=== PATIENT | female | born 1940 | race Caucasian/White ===

== ENCOUNTER 2018-10-22 17:05 | Emergency (ER) | payer MEDICARE, OTHER ==
[2018-10-22] MEDS ORDERED: Aspirin 81 MG Tab.Chew PO ONE (19:01)
[2018-10-22] MEDS ORDERED: Heparin Sodium 5,000 Units/ML Vial IVPUSH ONE (19:22)
[2018-10-22] MEDS ORDERED: Heparin Sodium/D5W 25,000 UNITS/500 ML BAG IV SCH (19:30)
[2018-10-22] MEDS ORDERED: Metoprolol Tartrate 5 MG/5 ML SDV IVPUSH ONE (20:12)
--- NOTE | 2018-10-22 20:35 | EDM.PDOC ---
ED HPI GENERAL MEDICAL PROBLEM - General Chief Complaint: Cardiovascular Problem Stated Complaint: [facility] Time Seen by Provider: 10/22/18 17:45 Source of Information: Reports: Patient History Limitations: Reports: No Limitations - History of Present Illness INITIAL COMMENTS - FREE TEXT/NARRATIVE: 78-year-old female presents via [place] [facility] for evaluation and treatment chest palpitations. 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 Reported associated symptoms of lightheadedness with this. 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 She then felt very weak so she went to the [employer] and laid down on the ground. Ultimately she ended up calling EMS. She denies any chest pain, shortness of breath, lightheadedness, syncope, nausea or vomiting. At this time she is not having any chest palpitations. She' s never had anything like this before. She reports past medical history of high cholesterol and hypertension but does not have any history of any arrhythmias or previous MIs. She is a previous smoker, smoked maybe 50 years ago. She exercises daily. Primary care providers Dr. Pina at [place]. Onset: Today - Related Data Allergies Allergy/AdvReac Type Severity Reaction Status Date / Time No Known Allergies Allergy Verified 10/22/18 17:14 Home Meds: Home Meds . [Unable to Verify Home Med List] 10/22/18 [History] Past Medical History HEENT History: Reports: Impaired Vision Other HEENT History: Wears glasses Cardiovascular History: Reports: High Cholesterol, Hypertension [employer] History: Reports: - Past Surgical History HEENT Surgical History: Reports: Tonsillectomy Social & Family History - Tobacco Use Smoking Status *Q: Former Smoker Used Tobacco, but Quit: Yes Month/Year Tobacco Last Used: 1959 - Recreational Drug Use Recreational Drug Use: No ED ROS GENERAL - Review of Systems Review Of Systems: See Below Constitutional: Denies: Fever, Chills Respiratory: Denies: Shortness of Breath, Cough Cardiovascular: Reports: Palpitations (earlier, now resolved). Denies: Chest Pain GI/Abdominal: Denies: Abdominal Pain, Nausea, Vomiting ED EXAM, GENERAL - Physical Exam Exam: See Below Exam Limited By: No Limitations General Appearance: Alert, WD/WN, No Apparent Distress, Thin Throat/Mouth: Normal Inspection, Normal Voice, No Airway Compromise Respiratory/Chest: No Respiratory Distress, Lungs Clear, Normal Breath Sounds Cardiovascular: Normal Peripheral Pulses, Regular Rate, Rhythm, No Murmur GI/Abdominal: Soft, Non-Tender Neurological: Alert, Oriented, Normal Cognition Psychiatric: Normal Affect, Normal Mood Skin Exam: Warm, Dry, Normal Color EKG INTERPRETATION EKG Date: 10/22/18 Rhythm: NSR EKG Interpretation Comments: EKG #1 done at 1730 shows a normal sinus rhythm 84 bpm. T-wave inversion in V3. Reviewed by myself and Dr. Boucher. EKG #2 done at 1939 shows normal sinus rhythm at 66. Probable intermittent ectopic non-conducting atrial waves. No atrial enlargement. No AVB. No ischemic changes. Late transition. Positive left axis deviation. Second-degree left anterior fascicular block. No left ventricular hypertrophy or right ventricular perihilar hypertrophy. No interventricular conduction delay. QTC within normal limits QTC of 427. Course - Vital Signs Last Recorded V/S: Last Vital Signs Temp 98.5 F 10/22/18 17:14 Pulse 69 10/22/18 20:24 Resp 20 10/22/18 17:14 BP 147/58 H 10/22/18 20:24 Pulse Ox 98 10/22/18 17:14 Orthostatic Blood Pressure [ 140/79 Standing] Orthostatic Blood Pressure [ 156/85 Sitting] Orthostatic Blood Pressure [ 140/87 Supine] - Orders/Labs/Meds Orders: Active Orders 24 hr Category Date Time Status Cardiac Monitoring [RC] . DIRECTED Care 10/22/18 17:59 Active EKG 12 Lead [EKG Documentation Completion] [RC] STAT Care 10/22/18 19:23 Active EKG Documentation Completion [RC] STAT Care 10/22/18 17:29 Active Orthostatic Vital Signs [RC] ASDIRECTED Care 10/22/18 18:05 Active Chest 2V [CR] Stat Exams 10/22/18 17:59 Taken Labs: Laboratory Tests 10/22/18 10/22/18 10/22/18 Range/Units 18:10 18:10 18:16 WBC 6.39 (3.98-10.04) K/mm3 RBC 4.28 (3.98-5.22) M/mm3 Hgb 13.2 (11.2-15.7) gm/L Hct 39.5 (34.1-44.9) % MCV 92.3 (79.4-94.8) fl MCH 30.8 (25.6-32.2) pg MCHC 33.4 (32.2-35.5) g/dl RDW Std Deviation 44.1 (36.4-46.3) fL Plt Count 313 (182-369) K/mm3 MPV 8.9 L (9.4-12.3) fl Neut % (Auto) 66.7 (34.0-71.1) % Lymph % (Auto) 18.9 L (19.3-51.7) % [place] % (Auto) 13.1 H (4.7-12.5) % Eos % (Auto) 0.5 L (0.7-5.8) Baso % (Auto) 0.8 (0.1-1.2) % Neut # (Auto) 4.26 (1.56-6.13) K/mm3 Lymph # (Auto) 1.21 (1.18-3.74) K/mm3 [place] # (Auto) 0.84 H (0.24-0.36) K/mm3 Eos # (Auto) 0.03 L (0.04-0.36) K/mm3 Baso # (Auto) 0.05 (0.01-0.08) K/mm3 PT 10.7 (9.5-12.1) SECONDS INR 0.98 APTT 26 (24-31) SECONDS D-Dimer, Quantitative (0.19-0.50) mg/L Sodium 142 (136-145) mEq/L Potassium 3.5 (3.5-5.1) mEq/L Chloride 104 (98-107) mEq/L Carbon Dioxide 28 (21-32) mEq/L Anion Gap 13.5 (5-15) BUN 22 H (7-18) mg/dL Creatinine 1.0 (0.55-1.02) mg/dL Est Cr Clr Drug Dosing 39.59 mL/min Estimated GFR (MDRD) 54 (>60) mL/min BUN/Creatinine Ratio 22.0 H (14-18) Glucose 135 H (83-115) mg/dL Calcium 9.3 (8.5-10.1) mg/dL Magnesium 1.9 (1.8-2.4) mg/dl Total Bilirubin 0.5 (0.2-1.0) mg/dL AST 13 L (15-37) U/L ALT 17 (14-59) U/L Alkaline Phosphatase 65 (46-116) U/L Troponin I 0.145 H* (0.00-0.056) ng/mL Total Protein 7.6 (6.4-8.2) g/dl Albumin 3.7 (3.4-5.0) g/dl Globulin 3.9 gm/dL Albumin/Globulin Ratio 1.0 (1-2) TSH 3rd Generation 1.836 (0.358-3.74) uIU/mL 10/22/18 Range/Units 18:16 WBC (3.98-10.04) K/mm3 RBC (3.98-5.22) M/mm3 Hgb (11.2-15.7) gm/L Hct (34.1-44.9) % MCV (79.4-94.8) fl MCH (25.6-32.2) pg MCHC (32.2-35.5) g/dl RDW Std Deviation (36.4-46.3) fL Plt Count (182-369) K/mm3 MPV (9.4-12.3) fl Neut % (Auto) (34.0-71.1) % Lymph % (Auto) (19.3-51.7) % [place] % (Auto) (4.7-12.5) % Eos % (Auto) (0.7-5.8) Baso % (Auto) (0.1-1.2) % Neut # (Auto) (1.56-6.13) K/mm3 Lymph # (Auto) (1.18-3.74) K/mm3 [place] # (Auto) (0.24-0.36) K/mm3 Eos # (Auto) (0.04-0.36) K/mm3 Baso # (Auto) (0.01-0.08) K/mm3 PT (9.5-12.1) SECONDS INR APTT (24-31) SECONDS D-Dimer, Quantitative 0.49 (0.19-0.50) mg/L Sodium (136-145) mEq/L Potassium (3.5-5.1) mEq/L Chloride (98-107) mEq/L Carbon Dioxide (21-32) mEq/L Anion Gap (5-15) BUN (7-18) mg/dL Creatinine (0.55-1.02) mg/dL Est Cr Clr Drug Dosing mL/min Estimated GFR (MDRD) (>60) mL/min BUN/Creatinine Ratio (14-18) Glucose (83-115) mg/dL Calcium (8.5-10.1) mg/dL Magnesium (1.8-2.4) mg/dl Total Bilirubin (0.2-1.0) mg/dL AST (15-37) U/L ALT (14-59) U/L Alkaline Phosphatase (46-116) U/L Troponin I (0.00-0.056) ng/mL Total Protein (6.4-8.2) g/dl Albumin (3.4-5.0) g/dl Globulin gm/dL Albumin/Globulin Ratio (1-2) TSH 3rd Generation (0.358-3.74) uIU/mL Meds: Medications Discontinued Medications Generic Name Dose Route Start Last Admin Trade Name Freq PRN Reason Stop Dose Admin Aspirin 324 mg 10/22/18 19:01 10/22/18 19:09 Aspirin PO 10/22/18 19:02 324 mg ONETIME ONE Administration Heparin Sodium (Porcine) 3,600 units 10/22/18 19:22 10/22/18 19:32 Heparin Sodium IVPUSH 10/22/18 19:23 3,600 units .BOLUS ONE Administration Heparin Sodium/Dextrose 25,000 units in 500 mls @ 14.4 mls/hr 10/22/18 19:30 10/22/18 19:34 Heparin 25,000 Units In D5w 500 Ml IV 720 units/hr TITRATE PRISCILLA 14.4 mls/hr Administration Protocol 720 UNITS/HR Metoprolol Tartrate 5 mg 10/22/18 20:12 10/22/18 20:24 Lopressor IVPUSH 10/22/18 20:13 5 mg ONETIME ONE Administration - Radiology Interpretation Free Text/Narrative:: Chest x-ray shows no acute intrathoracic process formal radiology report pending - Re-Assessments/Exams Free Text/Narrative Re-Assessment/Exam: 10/22/18 20:22 Reviewed the labs and imaging with the patient. We will send her to [facility] in [place] as her primary care provider is at [facility]. Spoke with Dr. Gottlieb, hospitalist on-call. Agrees to accept patient. She'll go by ground EMS. She has had a heparin bolus and has a drip running. She has received a 325 mg aspirin. I did just order her 5 of Lopressor. Patient continues to deny any chest pain or shortness of breath. Departure - Departure Time of Disposition: 20:30 Disposition: DC/Tfer to Acute Hospital 02 Reason for Transfer *Q: Other Condition: Fair Clinical Impression: NSTEMI (non-ST elevated myocardial infarction) Referrals: Umberto Pina MD [Primary Care Provider] - Forms: ED Department Discharge Additional Instructions: Patient transferred by ground ambulance to [facility]. Dr. Gottlieb accepting. - My Orders Last 24 Hours: My Active Orders 10/22/18 17:29 EKG Documentation Completion [RC] STAT 10/22/18 17:59 Cardiac Monitoring [RC] . DIRECTED Chest 2V [CR] Stat 10/22/18 18:05 Orthostatic Vital Signs [RC] ASDIRECTED 10/22/18 19:23 EKG 12 Lead [EKG Documentation Completion] [RC] STAT - Assessment/Plan Last 24 Hours: My Active Orders 10/22/18 17:29 EKG Documentation Completion [RC] STAT 10/22/18 17:59 Cardiac Monitoring [RC] . DIRECTED Chest 2V [CR] Stat 10/22/18 18:05 Orthostatic Vital Signs [RC] ASDIRECTED 10/22/18 19:23 EKG 12 Lead [EKG Documentation Completion] [RC] STAT
--- NOTE | 2018-10-23 09:11 | CR ---
Chest: Two views of the chest were obtained. Comparison: No previous chest x-ray. Heart is mildly enlarged. Upper mediastinum is within normal limits. Lungs are clear but slightly hyperinflated. Diffuse degenerative endplate spurring is noted within the thoracic spine. Minimal scoliosis is also noted within the spine. Impression: 1. Mild cardiomegaly and probable emphysematous change. 2. Other incidental findings. Nothing acute is appreciated. Diagnostic code #2
== END 2018-10-22 21:11 ==
LOC: SUPCPDRO 17:05 → JD.ED 17:05
DX: I21.4 Non-ST elevation (NSTEMI) myocardial infarction (principal); I10 Essential (primary) hypertension; Z87.891 Personal history of nicotine dependence
CPT/HCPCS: 36415; 71046; 80053; 83735; 84443; 84484; 85025; 85379; 85610; 85730; 93005; 96365; 96366; 96375; 96376; 99285; A9270; J1644; J3490; 93010; 99284

== ENCOUNTER 2019-05-08 15:02 | Emergency (ER) | payer MEDICARE, OTHER ==
--- NOTE | 2019-05-08 16:04 | EDM.PDOC ---
ED HPI GENERAL MEDICAL PROBLEM - General Chief Complaint: Back Pain or Injury Stated Complaint: LOWER BACK PAIN Time Seen by Provider: 05/08/19 15:43 Source of Information: Reports: Patient, Family, RN Notes Reviewed History Limitations: Reports: No Limitations - History of Present Illness INITIAL COMMENTS - FREE TEXT/NARRATIVE: Patient is a 79-year-old female who presents to the ED for the evaluation of lower back pain. Patient notes that she has been having increased back pain that is in her bilateral lower back for last week or so. Family is present in the room, and they state that she was seen by her primary care provider, Dr. Pina last week for evaluation was given some sort of medication and they were unsure if she had any sort of x-rays done at that time. Patient does suffer from either some Alzheimer's or dementia, but she has not been formally diagnosed. She is unsure if she fell or had any trauma to the area. She denies any pain that radiates into the legs. She further states it does not hurt to pee, she is not going more frequent or less frequent. She notes that the pain is at a 10 out of 10, and movement really aggravates the pain and makes it much much worse. She states when she is resting, the pain is minimal. She took 500 mg Tylenol last night for pain relief. She states that she gets spasms as well. Bilateral Back Pain Score (Numeric/FACES): 10 - Related Data Allergies Allergy/AdvReac Type Severity Reaction Status Date / Time No Known Allergies Allergy Verified 05/08/19 15:18 Home Meds: Home Meds Bisoprolol Fumarate/HCTZ [Ziac 10-6.25 MG] 1 tab PO DAILY 05/08/19 [History] Clopidogrel [Plavix] 75 mg PO DAILY 05/08/19 [History] Donepezil HCl 10 mg PO BEDTIME 05/08/19 [History] Etodolac [Etodolac ER] 500 mg PO DAILY PRN 05/08/19 [History] Losartan [Cozaar] 100 mg PO DAILY 05/08/19 [History] Orphenadrine [Norflex] 100 mg PO BID PRN #20 tab 05/08/19 [Rx] Rosuvastatin [Crestor] 5 mg PO DAILY 05/08/19 [History] amLODIPine Besylate [Amlodipine Besylate] 10 mg PO DAILY 05/08/19 [History] Past Medical History HEENT History: Reports: Impaired Vision Other HEENT History: Wears glasses Cardiovascular History: Reports: High Cholesterol, Hypertension, [place] (NSTEMI 2018) [employer]AL [employer]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 Second Hand Smoke Exposure: Yes - Caffeine Use Caffeine Use: Reports: Coffee - Recreational Drug Use Recreational Drug Use: No ED ROS GENERAL - Review of Systems Review Of Systems: See Below Constitutional: Reports: Fever (She is not complaining of any fever, but has a low-grade fever at time of triage, 99.7 F.). Denies: Chills Respiratory: Denies: Shortness of Breath, Cough Cardiovascular: Denies: Chest Pain GI/Abdominal: Denies: Abdominal Pain, Diarrhea, Nausea, Vomiting : Denies: Dysuria, Frequency, Urgency Musculoskeletal: Reports: Back Pain (bilateral low back pain). Denies: Leg Pain Neurological: Denies: Numbness, Tingling ED EXAM,LOWER BACK PAIN/INJURY - Physical Exam Exam: See Below Exam Limited By: No Limitations General Appearance: Alert, WD/WN, No Apparent Distress Eye Exam: Bilateral Eye: EOMI, Normal Inspection, PERRL Respiratory/Chest: No Respiratory Distress, Lungs Clear, Normal Breath Sounds, No Accessory Muscle Use, Chest Non-Tender Cardiovascular: Normal Peripheral Pulses, Regular Rate, Rhythm, No Murmur GI/Abdominal: Normal Bowel Sounds, Soft, No Organomegaly, No Distention, No Mass , Tender (The patient winced a little bit when palpated suprapubically, she states it was not painful however.) Extremities: Normal Inspection, Normal Capillary Refill Neurological: Alert, Normal Mood/Affect (appropriate for herself), Normal Dorsiflexion, Normal Plantar Flexion, Normal Reflexes, No Motor/Sensory Deficits , Straight Leg Raise (L), Straight Leg Raise (R). No: Saddle Anesthesia Psychiatric: Normal Affect, Normal Mood Skin Exam: Warm, Dry, Intact, Normal Color, No Rash Course - Vital Signs Last Recorded V/S: Last Vital Signs Temp 99.7 F 05/08/19 15:14 Pulse 66 05/08/19 15:14 Resp 16 05/08/19 15:14 BP 155/73 H 05/08/19 15:14 Pulse Ox 98 05/08/19 15:14 - Orders/Labs/Meds Labs: Laboratory Tests 05/08/19 Range/Units 17:27 Urine Color Yellow (Yellow) Urine Appearance Clear (Clear) Urine pH 6.5 (5.0-8.0) Ur Specific [place] > or = 1.030 (1.005-1.030) Urine Protein 1+ H (Negative) Urine Glucose (UA) Negative (Negative) Urine Ketones 1+ H (Negative) Urine Occult Blood Negative (Negative) Urine Nitrite Negative (Negative) Urine Bilirubin 1+ H (Negative) Urine Urobilinogen 0.2 (0.2-1.0) Ur Leukocyte Esterase Negative (Negative) Urine RBC 0-5 (0-5) /hpf Urine WBC 0-5 (0-5) /hpf Ur Squamous Epith Cells 0-5 (0-5) /hpf Urine Bacteria Few (FEW) /hpf Urine Mucus Many H (FEW) /hpf Meds: Medications Discontinued Medications Generic Name Dose Route Start Last Admin Trade Name Gabrielle PRN Reason Stop Dose Admin Ketorolac Tromethamine 60 mg 05/08/19 16:05 05/08/19 16:22 Toradol IM 05/08/19 16:06 60 mg ONETIME ONE Administration Orphenadrine Citrate 100 mg 05/08/19 16:05 05/08/19 16:22 Norflex PO 05/08/19 16:06 100 mg ONETIME ONE Administration - Re-Assessments/Exams Free Text/Narrative Re-Assessment/Exam: 05/08/19 16:03 Patient presents to the ED for the evaluation of bilateral lower back pain. Patient states it does worsen with movement, which would suggest a musculoskeletal etiology. However with her low-grade fever and perceived pain on suprapubic palpation, I will obtain a UA for further evaluation as well. I did try to call Dr. Pina office for his last visit with her, and have been in contact with patient's pharmacy for a prescription list. Patient states she is not on any sort of muscle relaxers, and the family also correlates this. 05/08/19 16:23 We were able to get patient's last visit from her primary care provider, this was on 04/09/2019 It appears she was seen for left anterior ankle pain, and she was evaluated again for her lumbar back pain on 04/22/2019. She was given tramadol for pain management. Review of patient's medication list at that time demonstrates bisoprolol 10 mg daily, donepezil 20 mg daily, clopidogrel 75 mg daily, amlodipine 10 mg daily, losartan 100 mg daily, Tylenol for arthritis 2 times a day as needed, multivitamins, aspirin 81 mg, biotin, and rosuvastatin 10 mg daily. Patient did have lumbar x-rays on the 04/22 visit, and did show moderate amount of degenerative change in both SI joints. Appears that her provider wanted her to do physical therapy. Departure - Departure Time of Disposition: 18:09 Disposition: Home, Self-Care 01 Condition: Fair Clinical Impression: Low back pain Qualifiers: Chronicity: acute Back pain laterality: bilateral Sciatica presence: without sciatica Qualified Code(s): M54.5 - Low back pain - Discharge Information *PRESCRIPTION DRUG MONITORING PROGRAM REVIEWED*: No *COPY OF PRESCRIPTION DRUG MONITORING REPORT IN PATIENT JOVITA: No Prescriptions: Orphenadrine [Norflex] 100 mg PO BID PRN #20 tab PRN Reason: Spasms Instructions: Back Injury Prevention, [id number], Back Exercises, Easy-to- Read Referrals: Umberto Pina MD [Primary Care Provider] - Forms: ED Department Discharge Additional Instructions: You were evaluated in the ER today regarding your lower back pain. We were able to review your visit with your primary care provider at the end of 2018, this demonstrated quite a bit of arthritic change within your lower back. You were given an injection of an anti-inflammatory, and a muscle relaxer, this seemed to help provide you pretty good relief from your symptoms. A urinalysis was also obtained, and was negative for any sort of bacterial infection. You do not have a UTI at today's visit. Recommend you take 400 to 600 mg ibuprofen every 6 hours for further inflammation relief, do not exceed more than 3200 mg of ibuprofen in a 24-hour time span. You were given a prescription for Norflex as well, this is a muscle relaxer, please take 1 tablet 2 times a day as needed for muscle spasms. You may also use a heating pad to your back, or ice the area as tolerated for further pain relief Recommend you follow-up with your primary care provider within the next week or so, please call his office tomorrow and schedule appointment for next week for a visit for reevaluation to make sure that your symptoms are improving. Review of your previous visit also demonstrated that he was trying to get you into physical therapy, this might be something to think about as well to help get you further pain relief from your back pain. If your symptoms change or worsen however please do not hesitate to return to the ER. Sepsis Event Note - Evaluation Sepsis Screening Result: No Definite Risk - Focused Exam Vital Signs: Vital Signs Temp Pulse Resp BP Pulse Ox 05/08/19 15:14 99.7 F 66 16 155/73 H 98 Date Exam was Performed: 05/08/19 Time Exam was Performed: 18:18
[2019-05-08] MEDS ORDERED: Orphenadrine 100 MG Tab.ER PO ONE (16:05)
[2019-05-08] MEDS ORDERED: Ketorolac 60 MG/2 ML SDV IM ONE (16:05)
== END 2019-05-08 18:55 | disposition home or self-care (01) ==
LOC: JD.ED 15:02
DX: M54.5 Low back pain (principal); I10 Essential (primary) hypertension; E78.00 Pure hypercholesterolemia, unspecified; I25.2 Old myocardial infarction; Z79.899 Other long term (current) drug therapy; Z87.891 Personal history of nicotine dependence
CPT/HCPCS: 81001; 96372; 99283; A9270; J1885